=== PATIENT | male | born 1935 | race Caucasian/White ===

== ENCOUNTER → 2016-08-18 | Outpatient (CLI) | payer MEDICARE, BC | END | disposition home or self-care (01) | LOC: LAB.O 07:42 | PROVIDERS: ATTEND Student in an Organized Health Care Education/Training Program | DX: I12.9 Hypertensive chronic kidney disease with stage 1 through stage 4 chronic kidney disease, or unspecified chronic kidney disease (principal); N18.3 Chronic kidney disease, stage 3 (moderate); I50.9 Heart failure, unspecified ==

== ENCOUNTER → 2017-01-05 | Outpatient (CLI) | payer MEDICARE, BC | LOC: LAB.O 07:52 | PROVIDERS: ATTEND Student in an Organized Health Care Education/Training Program | DX: N18.3 Chronic kidney disease, stage 3 (moderate) (principal); D63.1 Anemia in chronic kidney disease; N39.0 Urinary tract infection, site not specified; N25.81 Secondary hyperparathyroidism of renal origin; M10.9 Gout, unspecified; E55.9 Vitamin D deficiency, unspecified; R80.9 Proteinuria, unspecified ==

== ENCOUNTER → 2017-05-04 | Outpatient (CLI) | payer MEDICARE, BC | END | disposition home or self-care (01) | LOC: LAB.O 08:39 | PROVIDERS: ATTEND Student in an Organized Health Care Education/Training Program | DX: N18.3 Chronic kidney disease, stage 3 (moderate) (principal); D63.1 Anemia in chronic kidney disease; E11.9 Type 2 diabetes mellitus without complications ==

== ENCOUNTER → 2017-09-08 | Outpatient (CLI) | payer MEDICARE, BC | LOC: LAB.O 07:42 | PROVIDERS: ATTEND Student in an Organized Health Care Education/Training Program | DX: N18.3 Chronic kidney disease, stage 3 (moderate) (principal); D63.1 Anemia in chronic kidney disease; I12.9 Hypertensive chronic kidney disease with stage 1 through stage 4 chronic kidney disease, or unspecified chronic kidney disease; E55.9 Vitamin D deficiency, unspecified; N25.81 Secondary hyperparathyroidism of renal origin; E87.8 Other disorders of electrolyte and fluid balance, not elsewhere classified; N39.0 Urinary tract infection, site not specified ==

== ENCOUNTER 2018-01-20 10:03 | Emergency (ER) | payer MEDICARE, BC ==
--- NOTE | 2018-01-20 10:59 | RAD ---
EXAM DESCRIPTION: Chest,1 View CLINICAL HISTORY: 82 years Male, edema, sob, afib COMPARISON: Radiographs the chest dated 03/21/2010. TECHNIQUE: AP radiograph of the chest was obtained. FINDINGS: Trachea is midline. The cardiac silhouette is enlarged in size. There is bilateral pulmonary vascular congestion. Bilateral pleural effusions with associated airspace opacities of the bilateral lower lobes are noted. IMPRESSION: Enlarged cardiac silhouette with pulmonary vascular congestion. Bilateral pleural effusions with associated airspace opacities of the bilateral lower lobes. Electronically signed by: Harleen Dominguez MD 01/20/2018 10:58 AM CDT
--- NOTE | 2018-01-20 12:05 | CT ---
EXAM DESCRIPTION: Chest w/o Contrast CLINICAL HISTORY: 82 years Male, sob, edema, arf COMPARISON: Radiographs of the chest performed on the same day. TECHNIQUE: Contiguous thin section axial images through the chest were obtained after the administration of intravenous contrast. Sagittal and coronal reconstructions were reviewed. FINDINGS: The visualized thyroid gland and supraclavicular region appear normal. No evidence of abnormally enlarged mediastinal, hilar or axillary lymphadenopathy. Incidental note is made of 2.7 x 1.4 cm fluid density collection in the left breast with surrounding inflammatory stranding extending into the left axilla. Trachea is midline and the central tracheobronchial tree is patent. Pleural effusions with associated airspace opacities of the lungs most like representing atelectasis. The heart is enlarged in size and no pericardial effusion. The visualized aorta is nonaneurysmal with no significant atherosclerosis. The superior vena cava is normal in size and caliber. Moderate coronary artery atherosclerosis. The esophagus appears normal throughout its visualized length. Small volume ascites is identified. Remainder of the findings are well described on CT abdomen and pelvis report performed on the same date. Mild degenerative changes are identified throughout the thoracic spine. IMPRESSION: Enlarged heart. Bilateral pleural effusions with associated atelectasis of the bilateral lower lobes. Findings are suggestive of congestive heart failure. This exam was performed according to our departmental dose-optimization program, which includes automated exposure control, adjustment of the mA and/or kV according to patient size and/or use of iterative reconstruction technique. Electronically signed by: Harleen Dominguez MD 01/20/2018 12:04 PM CDT
--- NOTE | 2018-01-20 12:11 | CT ---
EXAM DESCRIPTION: Abdoment/Pelvis w/o Contrast CLINICAL HISTORY: 82 years Male, arf, ascites, anasarca COMPARISON: None available. TECHNIQUE: Contiguous 3 mm axial images were obtained from the lung bases to the level of the proximal femora without the administration of intravenous or oral contrast. Sagittal and coronal reconstructions were reviewed. FINDINGS: Slightly limited evaluation due to breathing artifact. Limited evaluation of the solid organs due to the lack of intravenous contrast. THORAX: The imaged lower thorax demonstrates no gross abnormality. LIVER: The liver demonstrates normal size and density with no intrahepatic biliary ductal dilatation. A simple cyst is identified in segment 4. GALLBLADDER: The gallbladder is not definitely visualized. PANCREAS: Appears normal with no cystic or solid lesions. SPLEEN: Normal ADRENAL GLANDS: Normal with no nodules or masses. KIDNEYS: Multiple simple cysts are identified in both kidneys. The right kidney is small in size with parenchymal thinning most likely representing chronic renal disease. The visualized ureters appear grossly unremarkable. STOMACH: The stomach is not well-distended limiting detailed evaluation. SMALL BOWEL: The small bowel loops demonstrate variable degrees of distention with no abnormal dilatation or other signs to suggest bowel obstruction. LARGE BOWEL: A few scattered colonic diverticuli are noted. The colon is not well-distended limiting detailed evaluation. Moderate volume ascites is noted. No free intraperitoneal air. RETROPERITONEUM: The abdominal aorta is nonaneurysmal with moderate to severe atherosclerosis. The inferior vena cava is normal in size and caliber. No abnormally enlarged retroperitoneal lymph nodes are identified. URINARY BLADDER: The urinary bladder is not well-distended and demonstrates a circumferentially thick wall most likely secondary to chronic bladder outlet obstruction. The prostate gland is enlarged in size with median lobe projecting into the base of the bladder. It measures 5.8 x 4.5 x 4.1 cm. The seminal vesicles are normal. ADDITIONAL FINDINGS: Bilateral fat-containing inguinal hernias are identified. As mentioned there is herniation of small amount of ascites fluid into the left inguinal hernia. Mild diffuse soft tissue edema is noted. BONES: Moderate degenerative changes are identified in the visualized bones.No evidence of osteophytic or osteoblastic lesions. IMPRESSION: 1. Scattered colonic diverticulosis. 2. Moderate volume ascites and diffuse soft tissue edema, suggestive of volume overload. 3. 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 This exam was performed according to our departmental dose-optimization program, which includes automated exposure control, adjustment of the mA and/or kV according to patient size and/or use of iterative reconstruction technique. Electronically signed by: Harleen Dominguez MD 01/20/2018 12:10 PM CDT
[2018-01-20] MEDS ORDERED: FUROSEMIDE INJ 40 MG/4 ML VIAL IV ONE (12:17)
--- NOTE | 2018-01-20 14:52 | ED.PDOC ---
History of Present Illness - General Chief Complaint: Cardiovascular Problem Stated Complaint: edema in legs,shortness of breath Time Seen by Provider: 01/20/18 10:07 Source: patient, family - History of Present Illness Initial Comments: the patient is an 82-year-old male presenting to the emergency room secondary to progressive shortness of breath as well as increased swelling in his extremities for the last week. Upon further questioning he has apparently had some abdominal distention for the better part of a month. 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 Geni Jasmine. He does also have a history of atrial fibrillation and is currently on Coumadin. The patient is short of breath with really any activity and does get more short of breath with lying back. He is not hypoxic on room air at this time but is borderline hypoxic. No fevers. No productive cough. He has had weight gain goes along with the fluid retention. He has been urinating but not much. Timing/Duration: 1 week Severity: severe Improving Factors: nothing Worsening Factors: nothing Associated Symptoms: malaise, shortness of breath, weakness Allergies/Adverse Reactions: Allergies Codeine Allergy (Verified 07/28/15 13:18) Home Medications: Ambulatory Orders Aspirin [Aspirin Adult Low Dose] 81 mg PO DAILY 07/28/15 Carvedilol [Coreg] 25 mg PO BID 01/20/18 Febuxostat [Uloric] 40 mg PO DAILY 01/20/18 Furosemide [Furosemide] 40 mg PO DAILY 01/20/18 Multiple Vitamins W/ Minerals [Centrum Silver] 1 ea PO DAILY 01/20/18 Multiple Vitamins W/ Minerals [Ocuvite Adult 50+] 1 cap PO DAILY 01/20/18 Simvastatin 40 mg PO BEDTIME 01/20/18 Tiotropium [place]-Olodaterol [Stiolto Respimat 2.5-2.5 Mcg/Act] 2 aer IN DAILY 01/20/18 Warfarin Sodium 2 mg PO SUMOWETH 01/20/18 Warfarin Sodium 4 mg PO TUFR 01/20/18 Review of Systems - Review of Systems Constitutional: States: malaise EENTM: States: no symptoms reported Respiratory: States: cough Cardiology: States: edema Gastrointestinal/Abdominal: States: no symptoms reported Genitourinary: States: no symptoms reported Musculoskeletal: States: no symptoms reported Skin: States: no symptoms reported Neurological: States: no symptoms reported Endocrine: States: unexplained weight gain All other Systems: No Change from Baseline Past Medical History (General) - Patient Medical History Hx Stroke: No Hx Cardiac Disorders: Yes - [place] Hx Congestive Heart Failure: No Hx Pacemaker: Yes Hx Hypertension: Yes Hx Diabetes: No Surgical History: pacemaker - Vaccination History Hx Tetanus, Diphtheria Vaccination: No Hx Influenza Vaccination: No Hx Pneumococcal Vaccination: Yes - Social History Hx Tobacco Use: Yes Hx Alcohol Use: No Hx Substance Use: No Hx Substance Use Treatment: No Hx Depression: No - Female History Patient : No Family Medical History - Family History Mother Family History: Unknown Living Status: Physical Exam - Physical Exam General Appearance: Alert, Comfortable, No apparent distress Eye Exam: bilateral normal Ears, Nose, Throat: hearing grossly normal - chronically decreased bilaterally, normal ENT inspection, normal pharynx Neck: full range of motion, supple Respiratory: no respiratory distress, no accessory muscle use, crackles, rales Cardiovascular/Chest: other - regular rate but irregular rhythm Peripheral Pulses: radial,right: 2+, radial,left: 2+, dorsalis pedis,right: 2+, dorsalis pedis,left: 2+ Gastrointestinal/Abdominal: non tender - he does have obvious ascites, soft Rectal Exam: deferred Back Exam: no CVA tenderness, no vertebral tenderness Extremity: normal range of motion, no calf tenderness, normal capillary refill, pedal edema - the patient actually has anasarca 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, alert, normal mood/affect, oriented x 3 - though he does get easily confused at times Skin Exam: normal color Comments: Vital Signs - 8 hr 01/20/18 01/20/18 01/20/18 10:30 10:58 11:17 Temperature 98.2 F Pulse Rate [ 95 H 88 93 H Right Brachial] Respiratory 20 20 20 Rate Blood Pressure 117/60 124/47 [Right Arm] O2 Sat by Pulse 95 100 Oximetry 01/20/18 01/20/18 01/20/18 12:12 13:06 14:00 Temperature Pulse Rate [ 91 H 97 H 82 Right Brachial] Respiratory 20 22 24 Rate Blood Pressure 119/67 116/70 112/77 [Right Arm] O2 Sat by Pulse 94 L 99 98 Oximetry Progress - Progress Progress: 01/20/18 14:57 the patient is an 82-year-old male with a history of atrial fibrillation and chronic renal insufficiency presenting secondary to overt fluid overload and anasarca. The patient does have an elevated BNP and a very mildly elevated troponin, both of which I think are significantly being elevated by the renal failure. The patient did have a Horan catheter placed after he voided and has had around 200 cc out since after a dose of Lasix. He does have supplemental oxygen in place though he does hold his oxygen at a borderline level even without it. The patient is going to be transferred for cardiology and nephrology evaluation. transferring for specialty care. - Results/Orders Results/Orders: chest x-rays consistent with fluid overload CT scan of the chest done without contrast shows large pleural effusions and some atelectasis. No large pericardial effusion. CT scan of abdomen and pelvis shows gross fluid overload. There is thickening in the bladder consistent with longer-term bladder outlet obstruction. no significant hydrocephalus. 01/20/18 10:30 EKG STAT shows atrial fibrillation with PVCs at a rate of 81 bpm. Mild T-wave inversions in lead V5, lead 1 and lead 2. Laboratory Results - last 24 hr 01/20/18 01/20/18 01/20/18 10:29 10:29 10:29 WBC 8.4 RBC 4.32 L Hgb 14.0 Hct 43.6 MCV 101.0 H MCH 32.4 H MCHC 32.0 L RDW 14.8 H Plt Count 69 L MPV 9.9 Absolute Neuts (auto) 6.80 Absolute Lymphs (auto) 0.70 L Absolute Monos (auto) 0.90 H Absolute Eos (auto) 0.00 Absolute Basos (auto) 0.00 Neutrophils % 81.2 H Lymphocytes % 8.1 L Monocytes % 10.3 H Eosinophils % 0.1 L Basophils % 0.3 PT 40.6 H* INR 4.12 H* PTT (SP) 35.6 H Sodium 140 Potassium 4.4 Chloride 100 L Carbon Dioxide 33 H Anion Gap 11.4 L BUN 98 H Creatinine 3.88 H BUN/Creatinine Ratio 25.3 H Random Glucose 120 H Serum Osmolality 311.1 H Lactic Acid Calcium 8.9 Magnesium 2.6 H Total Bilirubin 0.8 AST 36 ALT 31 Alkaline Phosphatase 45 Creatine Kinase 89 CK-MB (CK-2) 6.5 H* CK-MB (CK-2) % 7.30 H Troponin I 0.09 H* B-Natriuretic Peptide 2320.0 H* Serum Total Protein 5.6 L Albumin 3.4 Globulin 2.2 L Albumin/Globulin Ratio 1.5 TSH 5.69 H Urine Color Urine Appearance Urine pH Ur Specific [place] Urine Protein Urine Glucose (UA) Urine Ketones Urine Blood Urine Nitrite Urine Bilirubin Urine Urobilinogen Ur Leukocyte Esterase Urine RBC Urine WBC Ur Epithelial Cells Urine Bacteria 01/20/18 01/20/18 10:29 11:12 WBC RBC Hgb Hct MCV MCH MCHC RDW Plt Count MPV Absolute Neuts (auto) Absolute Lymphs (auto) Absolute Monos (auto) Absolute Eos (auto) Absolute Basos (auto) Neutrophils % Lymphocytes % Monocytes % Eosinophils % Basophils % PT INR PTT (SP) Sodium Potassium Chloride Carbon Dioxide Anion Gap BUN Creatinine BUN/Creatinine Ratio Random Glucose Serum Osmolality Lactic Acid 1.3 Calcium Magnesium Total Bilirubin AST ALT Alkaline Phosphatase Creatine Kinase CK-MB (CK-2) CK-MB (CK-2) % Troponin I B-Natriuretic Peptide Serum Total Protein Albumin Globulin Albumin/Globulin Ratio TSH Urine Color Yellow Urine Appearance Clear Urine pH 5.5 Ur Specific [place] 1.020 Urine Protein 30 Urine Glucose (UA) Negative Urine Ketones Negative Urine Blood Negative Urine Nitrite Negative Urine Bilirubin Negative Urine Urobilinogen 0.2 Ur Leukocyte Esterase Negative Urine RBC 1-3 Urine WBC 0 Ur Epithelial Cells 5-10 Urine Bacteria 0 Departure - Departure Clinical Impression: Renal anasarca Acute renal failure Qualifiers: Acute renal failure type: unspecified Qualified Code(s): N17.9 - Acute kidney failure, unspecified Disposition: Transfer to Hospital Referrals: FRANCISCO MORALES [Primary Care Provider] - 1-2 Weeks Home Medications: Ambulatory Orders Aspirin [Aspirin Adult Low Dose] 81 mg PO DAILY 07/28/15 Carvedilol [Coreg] 25 mg PO BID 01/20/18 Febuxostat [Uloric] 40 mg PO DAILY 01/20/18 Furosemide [Furosemide] 40 mg PO DAILY 01/20/18 Multiple Vitamins W/ Minerals [Centrum Silver] 1 ea PO DAILY 01/20/18 Multiple Vitamins W/ Minerals [Ocuvite Adult 50+] 1 cap PO DAILY 01/20/18 Simvastatin 40 mg PO BEDTIME 01/20/18 Tiotropium [place]-Olodaterol [Stiolto Respimat 2.5-2.5 Mcg/Act] 2 aer IN DAILY 01/20/18 Warfarin Sodium 2 mg PO SUMOWETH 01/20/18 Warfarin Sodium 4 mg PO TUFR 01/20/18 Transfer to Outside Facility - Transfer Information Accepting Provider:: dr cuellar Accepting Facility: [place] Reason for Transfer: required specialist not available
[2018-01-20 15:45] VITALS: BP 132/94; TEMP 97.6; O2SAT 96
== END 2018-01-20 15:45 | disposition short-term general hospital (02) ==
LOC: ER 10:03
DX: I12.9 Hypertensive chronic kidney disease with stage 1 through stage 4 chronic kidney disease, or unspecified chronic kidney disease (principal); N18.9 Chronic kidney disease, unspecified; N17.9 Acute kidney failure, unspecified; N04.9 Nephrotic syndrome with unspecified morphologic changes; I25.2 Old myocardial infarction; I48.91 Unspecified atrial fibrillation; Z95.0 Presence of cardiac pacemaker; Z79.01 Long term (current) use of anticoagulants; Z79.82 Long term (current) use of aspirin; Z87.891 Personal history of nicotine dependence
CPT/HCPCS: 36415; 71045; 71250; 74176; 80053; 81001; 82550; 82553; 83605; 83735; 83880; 84443; 84484; 85025; 85610; 85730; 93005; J1940